=== PATIENT | male | born 1980 | race Caucasian/White ===

== ENCOUNTER 2016-12-19 08:38 | Emergency (ER) | payer SELFPAY ==
[2016-12-19 09:44] LABS: Hemoglobin 13.6 gm/dl (11.8-15.2); Mean Corpuscular HGB Conc 33 % (32-34); Mean Corpuscular Hemoglobin 30 pg (28-32); Mean Corpuscular Volume 90 fl (84-94); Platelet Count 326 K/mm3 (140-440); Red Blood Count 4.55 M/mm3 (3.65-5.03); Red Cell Distribution Width 14.8 % (13.2-15.2); White Blood Count 7.3 K/mm3 (4.5-11.0)
[2016-12-19 09:54] LABS: BUN/Creatinine Ratio 8.66; Calcium 9.4 mg/dL (8.4-10.2); Chloride 98.6 mmol/L (98-107); Potassium 3.8 mmol/L (3.6-5.0)
[2016-12-19 10:01] LABS: Urine Drugs of Abuse Note Disclamer
[2016-12-19 10:35] LABS: Bilirubin,Urine NEG (Negative); Blood,Urine SM (Negative); Ketones,Urine NEG (Negative); Leukocyte Esterase,Urine NEG (Negative); Mucus,Urine FEW /HPF; Nitrite,Urine NEG (Negative); Urobilinogen,Urine < 2.0 mg/dL (<2.0)
--- NOTE | 2016-12-19 11:13 | Emergency Department Report ---
ED General Adult HPI - General Chief complaint: Medical Clearance Stated complaint: INTOXICATED Time Seen by Provider: 12/19/16 11:12 Source: patient, EMS Mode of arrival: Stretcher Limitations: Language Barrier - History of Present Illness Initial comments: Patient was apprehended by police apparently in an intoxicated state. He admits to alcohol excess. He is still intoxicated and not providing much of a history. He denies any recent injury. He tells me he is from [place]. He doesn' t offer any complaint. He does say that he is thirsty and hungry. -: unknown Consistency: constant Improves with: none Worsens with: none Associated Symptoms: denies other symptoms - Related Data Previous Rx's Medication Instructions Recorded Last Taken Type Meclizine [Antivert] 25 mg PO TID PRN #30 tablet 04/09/16 Unknown Rx Promethazine [Phenergan TAB] 25 mg PO Q6HR PRN #60 tab 04/09/16 Unknown Rx amLODIPine [Norvasc] 10 mg PO DAILY #30 tab 04/09/16 Unknown Rx traMADol [Ultram 50 MG tab] 50 mg PO Q6HR PRN #20 tablet 04/09/16 Unknown Rx Allergies Allergy/AdvReac Type Severity Reaction Status Date / Time No Known Allergies Allergy Verified 04/09/16 11:32 ED Review of Systems ROS: Stated complaint: INTOXICATED Other details as noted in HPI Comment: Unobtainable due to pts medical conditions ED Past Medical Hx - Past Medical History Previous Medical History?: Yes Hx Hypertension: Yes Hx Diabetes: Yes - Social History Smoking Status: Never Smoker Substance Use Type: Alcohol - Medications Home Medications: Home Medications Medication Instructions Recorded Confirmed Last Taken Type Meclizine [Antivert] 25 mg PO TID PRN #30 tablet 04/09/16 Unknown Rx Promethazine [Phenergan TAB] 25 mg PO Q6HR PRN #60 tab 04/09/16 Unknown Rx amLODIPine [Norvasc] 10 mg PO DAILY #30 tab 04/09/16 Unknown Rx traMADol [Ultram 50 MG tab] 50 mg PO Q6HR PRN #20 tablet 04/09/16 Unknown Rx ED Physical Exam - General General appearance: in no apparent distress, lethargic, obese - Head Head exam: Present: atraumatic, normocephalic - Eye Eye exam: Present: normal appearance, PERRL, EOMI. Absent: scleral icterus - ENT ENT exam: Present: mucous membranes moist - Neck Neck exam: Present: normal inspection - Respiratory Respiratory exam: Present: normal lung sounds bilaterally. Absent: respiratory distress - Cardiovascular Cardiovascular Exam: Present: regular rate, normal rhythm. Absent: systolic murmur, diastolic murmur, rubs, gallop - GI/Abdominal GI/Abdominal exam: Present: soft, normal bowel sounds. Absent: distended, tenderness, guarding, rebound, rigid - Rectal Rectal exam: Present: deferred - Extremities Exam Extremities exam: Present: normal inspection - Back Exam Back exam: Present: normal inspection - Neurological Exam Neurological exam: Present: CN II-XII intact, other (exam somewhat limited but no focal deficit noted). Absent: motor sensory deficit - Psychiatric Psychiatric exam: Present: normal mood, flat affect - Skin Skin exam: Present: warm, dry, intact, normal color. Absent: rash ED Course Vital Signs 12/19/16 09:00 Temperature 97.8 F Pulse Rate 101 H Respiratory 20 Rate Blood Pressure 168/97 O2 Sat by Pulse 94 Oximetry - Reevaluation(s) Reevaluation #1: On reexamination the patient is coherent. He is receiving a banana bag. He states he can call a friend to pick him up. He is stable and appropriate for discharge. 12/19/16 14:07 ED Medical Decision Making - Lab Data Result diagrams: 12/19/16 09:25 12/19/16 09:25 Laboratory Results - last 24 hr 12/19/16 12/19/16 12/19/16 09:25 09:25 09:25 WBC 7.3 RBC 4.55 Hgb 13.6 Hct 41.0 MCV 90 MCH 30 MCHC 33 RDW 14.8 Plt Count 326 Baso % (Auto) Manager Foreign Sodium 140 Potassium 3.8 Chloride 98.6 Carbon Dioxide 23 Anion Gap 22 BUN 13 Creatinine 1.5 Estimated GFR 53 BUN/Creatinine Ratio 8.66 Glucose 99 Calcium 9.4 Urine Color Urine Turbidity Urine pH Ur Specific Custer Urine Protein Urine Glucose (UA) Urine Ketones Urine Blood Urine Nitrite Urine Bilirubin Urine Urobilinogen Ur Leukocyte Esterase Urine WBC (Auto) Urine RBC (Auto) Urine Mucus Urine Opiates Screen Urine Methadone Screen Ur Barbiturates Screen Ur Phencyclidine Scrn Ur Amphetamines Screen U Benzodiazepines Scrn Urine Cocaine Screen U Marijuana (THC) Screen Drugs of Abuse Note Plasma/Serum Alcohol 0.30 H 12/19/16 12/19/16 09:57 09:57 WBC RBC Hgb Hct MCV MCH MCHC RDW Plt Count Baso % (Auto) Sodium Potassium Chloride Carbon Dioxide Anion Gap BUN Creatinine Estimated GFR BUN/Creatinine Ratio Glucose Calcium Urine Color Colorless Urine Turbidity Clear Urine pH 6.0 Ur Specific Custer 1.003 Urine Protein 100 mg/dl Urine Glucose (UA) Neg Urine Ketones Neg Urine Blood Sm Urine Nitrite Neg Urine Bilirubin Neg Urine Urobilinogen < 2.0 Ur Leukocyte Esterase Neg Urine WBC (Auto) 0.0 Urine RBC (Auto) 0.0 Urine Mucus Few Urine Opiates Screen Presumptive negative Urine Methadone Screen Presumptive negative Ur Barbiturates Screen Presumptive negative Ur Phencyclidine Scrn Presumptive negative Ur Amphetamines Screen Presumptive negative U Benzodiazepines Scrn Presumptive negative Urine Cocaine Screen Presumptive negative U Marijuana (THC) Screen Presumptive negative Drugs of Abuse Note Disclamer Plasma/Serum Alcohol Critical care attestation.: If time is entered above; I have spent that time in minutes in the direct care of this critically ill patient, excluding procedure time. ED Disposition Clinical Impression: Alcohol intoxication Qualifiers: Complication of substance-induced condition: with unspecified complication Qualified Code(s): F10.129 - Alcohol abuse with intoxication, unspecified Disposition: DISCHARGED TO HOME OR SELFCARE Is pt being admited?: No Does the pt Need Aspirin: No Condition: Stable Instructions: Abuse of Alcohol (ED) Additional Instructions: Return as need. Referrals: PRIMARY CARE [Primary Care Provider] - 3-5 Days [facility] [Provider Group] - 3-5 Days Time of Disposition: 14:08
[2016-12-19] MEDS ORDERED: VITAMIN B-1 100 MG, FOLVITE 1 MG, INFUVITE 10 ML in NACL 0.9% 1000 ML 1,000 ML IV ONE (11:38)
[2016-12-19 12:50] LABS: Anisocytosis 1+; Basophils % (Manual) 0 % (0.0-1.8); Blastocytes % (Manual) 0 %; Diff Status Complete; Platelet Estimate Consistent w Auto
[2016-12-19 14:23] VITALS: BP 100/61
== END 2016-12-19 15:41 | disposition home or self-care (01) ==
LOC: ED 08:38
DX: F10.129 Alcohol abuse with intoxication, unspecified (principal); I10 Essential (primary) hypertension; E11.9 Type 2 diabetes mellitus without complications
CPT/HCPCS: 36415; 80048; 80307; 81001; 85007; 85025; 96365; 96366; 99284; G0480; J3411; J7030; 80320

== ENCOUNTER 2022-02-03 14:31 | Emergency (ER) | payer SELFPAY ==
[2022-02-03] MEDS ORDERED: ONDANSETRON 4 MG ODT TAB PO ONE (15:53)
[2022-02-03] MEDS ORDERED: cloNIDine 0.2 MG TAB PO ONE (15:53)
[2022-02-03] MEDS ORDERED: HYDROcodone/ACETAMINOPHEN 5-325 MG TAB PO ONE (15:53)
--- NOTE | 2022-02-03 15:58 | Emergency Department Report ---
HPI - General Chief Complaint: High BP Time Seen by Provider: 02/03/22 15:45 - [facility] HPI: Room 5 The patient is a 41-year-old male present with a chief complaint of headache and dizziness with elevated blood pressure. Patient was sent from the clinic for uncontrolled diabetes and hypertension. Patient states since yesterday's had a headache and dizziness. Patient states he had episodes of nausea vomiting this morning. Patient found to be hypertensive. Patient currently gives his headache a score of 8/10 ED Past Medical Hx - Past Medical History Hx Hypertension: Yes Hx Diabetes: Yes - Surgical History Past Surgical History?: No - Family History Family history: no significant - Social History Smoking Status: Never Smoker Substance Use Type: None (Denies illicit drug use), Alcohol (Occasional) - Medications Home Medications: Home Medications Medication Instructions Recorded Confirmed Last Taken Type Meclizine [Antivert] 25 mg PO TID PRN #30 tablet 04/09/16 Unknown Rx Promethazine [Phenergan TAB] 25 mg PO Q6HR PRN #60 tab 04/09/16 Unknown Rx amLODIPine [Norvasc] 10 mg PO DAILY #30 tab 04/09/16 Unknown Rx traMADoL [Ultram 50 MG tab] 50 mg PO Q6HR PRN #20 tablet 04/09/16 Unknown Rx ED Review of Systems ROS: Stated complaint: DIABETES,HYPERTENSION Other details as noted in HPI Constitutional: no symptoms reported Eyes: denies: eye pain ENT: denies: throat pain Respiratory: no symptoms reported Cardiovascular: denies: chest pain Endocrine: no symptoms reported Gastrointestinal: nausea, vomiting Genitourinary: denies: dysuria Musculoskeletal: denies: back pain Neurological: headache, vertigo Physical Exam - Physical Exam Vital Signs: Vital Signs 02/03/22 15:35 Temperature 98.1 F Pulse Rate 74 Respiratory 18 Rate Blood Pressure 180/128 O2 Sat by Pulse 95 Oximetry Physical Exam: GENERAL: The patient is well-developed well-nourished male lying on stretcher not appearing to be in acute distress. [] HEENT: Normocephalic. Atraumatic. Extraocular motions are intact. Patient has moist mucous membranes. No nystagmus noted NECK: Supple. No meningitic signs are noted. Trachea midline CHEST/LUNGS: Clear to auscultation. There is no respiratory distress noted. HEART/CARDIOVASCULAR: Regular. There is no tachycardia. There is no gallop rub or murmur. ABDOMEN: Abdomen is soft, nontender. Patient has normal bowel sounds. There is no abdominal distention. SKIN: There is no rash. There is no edema. There is no diaphoresis. NEURO: The patient is awake, alert, and oriented. The patient is cooperative. The patient has no focal neurologic deficits. The patient has normal speech. Cranial nerves II through XII grossly intact. GCS 15 MUSCULOSKELETAL: There is no evidence of acute injury. ED Course Vital Signs 02/03/22 15:35 Temperature 98.1 F Pulse Rate 74 Respiratory 18 Rate Blood Pressure 180/128 O2 Sat by Pulse 95 Oximetry - Reevaluation(s) Reevaluation #1: 02/03/22 17:20 Patient eating food comfortably at this time. Patient states his dizziness is improved dramatically. The patient's creatinine was discussed with him. And the need to follow-up with vortex operator was stressed. Patient verbalized understanding ED Medical Decision Making - Lab Data Result diagrams: 02/03/22 16:10 02/03/22 16:10 - Differential Diagnosis Hypertensive urgency, hypertensive emergency, DKA Critical care attestation.: If time is entered above; I have spent that time in minutes in the direct care of this critically ill patient, excluding procedure time. ED Disposition Clinical Impression: Hypertensive urgency, Renal insufficiency Disposition: 01 HOME / SELF CARE / HOMELESS Is pt being admited?: No Does the pt Need Aspirin: No Condition: Stable Instructions: Food Basics for Chronic Kidney Disease, Managing Your Hypertension Additional Instructions: Return to the emergency department should you develop worsening symptoms, inability to tolerate food or liquids, high fever or any other concerns Referrals: VIK GERMAN MD [Staff Physician] - 2-3 Days (Dr. German is a vortex operator. Please follow-up with him for further evaluation of your kidney function) Time of Disposition: 17:22 Print Language: NEPALI
[2022-02-03 16:23] LABS: Basophils # (Auto) 0.2 K/mm3 (0.0-0.1); Basophils % (Auto) 2.6 % (0.0-1.8); Eosinophils # (Auto) 0.5 K/mm3 (0.0-0.4); Eosinophils % (Auto) 6.9 % (0.0-4.3); Hemoglobin 10.9 gm/dl (11.8-15.2); Lymphocytes # (Auto) 1.9 K/mm3 (1.2-5.4); Lymphocytes % (Auto) 27.6 % (13.4-35.0); Mean Corpuscular HGB Conc 32 % (32-34); Mean Corpuscular Volume 88 fl (84-94); Monocytes # (Auto) 0.4 K/mm3 (0.0-0.8); Monocytes % (Auto) 5.9 % (0.0-7.3); Platelet Count 269 K/mm3 (140-440); Red Blood Count 3.88 M/mm3 (3.65-5.03); Red Cell Distribution Width 17.7 % (13.2-15.2)
[2022-02-03 16:37] LABS: Calcium 8.8 mg/dL (8.4-10.2)
[2022-02-03 17:19] VITALS: BP 174/116
== END 2022-02-03 17:59 | disposition home or self-care (01) ==
LOC: ED 14:31
DX: I16.0 Hypertensive urgency (principal); N28.9 Disorder of kidney and ureter, unspecified; E11.9 Type 2 diabetes mellitus without complications
CPT/HCPCS: 36415; 80048; 82805; 82962; 85025; 99283; J3490; Q0162

== ENCOUNTER 2022-07-06 09:20 | Emergency (ER) | payer SELFPAY ==
--- NOTE | 2022-07-06 10:18 | XRay Report ---
CHEST 2 VIEWS INDICATION / CLINICAL INFORMATION: Dyspnea. COMPARISON: None available. FINDINGS: SUPPORT DEVICES: None. HEART / MEDIASTINUM: Heart is moderately enlarged. LUNGS / PLEURA: Moderate interstitial pulmonary edema. No pneumothorax. ADDITIONAL FINDINGS: No significant additional findings. IMPRESSION: 1. Moderate cardiomegaly with interstitial pulmonary edema. Signer Name: Ximena Ying MD Signed: 07/06/2022 10:14 AM Workstation Name: [employer]
[2022-07-06 12:14] LABS: Basophils # (Auto) 0.1 K/mm3 (0.0-0.1); Basophils % (Auto) 1.2 % (0.0-1.8); Eosinophils # (Auto) 0.2 K/mm3 (0.0-0.4); Eosinophils % (Auto) 3.4 % (0.0-4.3); Hematocrit 32.4 % (35.5-45.6); Hemoglobin 10.8 gm/dl (11.8-15.2); Lymphocytes # (Auto) 1.8 K/mm3 (1.2-5.4); Lymphocytes % (Auto) 29.7 % (13.4-35.0); Mean Corpuscular HGB Conc 33 % (32-34); Mean Corpuscular Volume 90 fl (84-94); Monocytes # (Auto) 0.5 K/mm3 (0.0-0.8); Monocytes % (Auto) 7.7 % (0.0-7.3); Platelet Count 248 K/mm3 (140-440); Red Blood Count 3.62 M/mm3 (3.65-5.03); Red Cell Distribution Width 17.3 % (13.2-15.2)
[2022-07-06 12:41] LABS: Albumin 4.9 g/dL (3.9-5); Calcium 9.4 mg/dL (8.4-10.2)
[2022-07-06] MEDS ORDERED: MORPHINE 4 MG/1 ML INJ IV ONE (16:09)
[2022-07-06] MEDS ORDERED: FUROSEMIDE 40 MG/4 ML INJ IV ONE (16:09)
--- NOTE | 2022-07-06 16:14 | Emergency Department Report ---
ED Shortness of Breath HPI - General Chief Complaint: Dyspnea/Respdistress Stated Complaint: STOMACH PAIN Time Seen by Provider: 07/06/22 15:16 Source: patient Mode of arrival: Ambulatory Limitations: Language Barrier - History of Present Illness Initial Comments: Patient is a 41-year-old male history of hypertension who presents to the emergency department with complaint of shortness of breath. Patient is Mongolian- speaking only and a animal scientist is used. History is limited in this nature. Patient reports that he has had 3 days of pain in his stomach. He also had some vomiting and he was noted that his blood pressure was high. Patient states he takes pills for his leg swelling but because he was recently removed from his home or apartment he has not been able to take these pills. He is unable to tell me the name of these pills but I do believe that they are Lasix or furosemide. Patient also states that he has had some diarrhea along with his shortness of breath. He also reported some chest pain earlier today. Last night he states he slept outside and it was raining and his symptoms worsened which prompted him to come to the emergency department. He also states he has had some fever as well. He has received one of the COVID-19 vaccinations. - Related Data Previous Rx's Medication Instructions Recorded Last Taken Type Meclizine [Antivert] 25 mg PO TID PRN #30 tablet 04/09/16 Unknown Rx Promethazine [Phenergan TAB] 25 mg PO Q6HR PRN #60 tab 04/09/16 Unknown Rx amLODIPine [Norvasc] 10 mg PO DAILY #30 tab 04/09/16 Unknown Rx traMADoL [Ultram 50 MG tab] 50 mg PO Q6HR PRN #20 tablet 04/09/16 Unknown Rx Lisinopril [Zestril TAB] 2.5 mg PO QDAY #30 tab 07/06/22 Unknown Rx Metoprolol [Lopressor TAB] 25 mg PO DAILY #30 07/06/22 Unknown Rx Simvastatin 20 mg PO QHS #30 07/06/22 Unknown Rx Allergies Allergy/AdvReac Type Severity Reaction Status Date / Time No Known Allergies Allergy Verified 07/06/22 09:57 ED Review of Systems ROS: Stated complaint: STOMACH PAIN Other details as noted in HPI Constitutional: fever. denies: chills Eyes: denies: eye pain, eye discharge, vision change ENT: denies: ear pain, throat pain Respiratory: shortness of breath, SOB with exertion. denies: cough, wheezing Cardiovascular: chest pain. denies: palpitations Endocrine: no symptoms reported Gastrointestinal: abdominal pain, nausea, vomiting, diarrhea Genitourinary: denies: urgency, dysuria Musculoskeletal: denies: back pain, joint swelling, arthralgia Skin: denies: rash, lesions Neurological: denies: headache, weakness, paresthesias Psychiatric: denies: anxiety, depression Hematological/Lymphatic: denies: easy bleeding, easy bruising ED Past Medical Hx - Past Medical History Hx Hypertension: Yes Hx Diabetes: Yes - Social History Smoking Status: Never Smoker Substance Use Type: None (Denies illicit drug use), Alcohol (Occasional) - Medications Home Medications: Home Medications Medication Instructions Recorded Confirmed Last Taken Type Meclizine [Antivert] 25 mg PO TID PRN #30 tablet 04/09/16 02/03/22 Unknown Rx Promethazine [Phenergan TAB] 25 mg PO Q6HR PRN #60 tab 04/09/16 02/03/22 Unknown Rx amLODIPine [Norvasc] 10 mg PO DAILY #30 tab 04/09/16 02/03/22 Unknown Rx traMADoL [Ultram 50 MG tab] 50 mg PO Q6HR PRN #20 tablet 04/09/16 02/03/22 U nknown Rx Lisinopril [Zestril TAB] 2.5 mg PO QDAY #30 tab 07/06/22 Unknown Rx Metoprolol [Lopressor TAB] 25 mg PO DAILY #30 07/06/22 Unknown Rx Simvastatin 20 mg PO QHS #30 07/06/22 Unknown Rx ED Physical Exam - General Limitations: Language Barrier General appearance: alert, in no apparent distress - Head Head exam: Present: atraumatic, normocephalic - Eye Eye exam: Present: normal appearance - ENT ENT exam: Present: mucous membranes moist - Neck Neck exam: Present: normal inspection - Respiratory Respiratory exam: Present: normal lung sounds bilaterally. Absent: respiratory distress - Cardiovascular Cardiovascular Exam: Present: regular rate, normal rhythm. Absent: systolic murmur, diastolic murmur, rubs, gallop - GI/Abdominal GI/Abdominal exam: Present: soft, tenderness (diffuse but more severe in upper abdomen) - Rectal Rectal exam: Present: deferred - Extremities Exam Extremities exam: Present: normal inspection - Back Exam Back exam: Present: normal inspection - Neurological Exam Neurological exam: Present: alert, oriented X3 - Psychiatric Psychiatric exam: Present: normal affect, normal mood - Skin Skin exam: Present: warm, dry, intact, normal color. Absent: rash ED Course Vital Signs 07/06/22 07/06/22 09:42 19:59 Temperature 98.2 F Pulse Rate 67 69 Respiratory 16 14 Rate Blood Pressure 179/112 162/108 [Right] O2 Sat by Pulse 94 99 Oximetry - Reevaluation(s) Reevaluation #1: 07/06/22 17:24 Patient was evaluated by the hospitalist, Dr. Mccain who recommended patient be discharged home with close outpatient follow-up. He has been provided with prescriptions. ED Medical Decision Making - Lab Data Result diagrams: 07/06/22 11:19 07/06/22 17:59 - Radiology Data Radiology results: report reviewed, image reviewed - Medical Decision Making Patient is a 41-year-old male presenting to the emergency department with complaint of shortness of breath and abdominal pain. Differential includes pneumonia, heart failure exacerbation, ACS, gastritis. Plan for evaluation with x-ray, basic labs, CT scan of abdomen and pelvis. Critical care attestation.: If time is entered above; I have spent that time in minutes in the direct care of this critically ill patient, excluding procedure time. ED Disposition Clinical Impression: Noncompliance with medication regimen, Elevated serum creatinine, Cardiomyopathy Hypertension Qualifiers: Hypertension type: primary hypertension Qualified Code(s): I10 - Essential (primary) hypertension Disposition: 01 HOME / SELF CARE / HOMELESS Is pt being admited?: No Does the pt Need Aspirin: No Condition: Stable Instructions: Hypertension (ED) Prescriptions: Simvastatin 20 mg PO QHS #30 Metoprolol [Lopressor TAB] 25 mg PO DAILY #30 Lisinopril [Zestril TAB] 2.5 mg PO QDAY #30 tab Referrals: REECE TREJO MD [Primary Care Provider] - 7 Days
--- NOTE | 2022-07-06 16:56 | Cat Scan Report ---
CT ABDOMEN AND PELVIS WITHOUT CONTRAST INDICATION / CLINICAL INFORMATION: severe abdominal pain. TECHNIQUE: Axial CT images were obtained through the abdomen and pelvis without IV contrast. All CT scans at this location are performed using CT dose reduction for ALARA by means of automated exposure control. COMPARISON: None available. FINDINGS: LOWER CHEST: Partially visualized small/moderate volume pericardial effusion that measures 1.7 cm in thickness along the right heart border. Bibasilar interstitial thickening and groundglass opacities m ost likely representing mild interstitial edema. Right middle lobe and lingular subsegmental platelik e atelectasis. LIVER: No significant abnormality. GALLBLADDER/BILIARY: No significant abnormality or evidence for biliary obstruction. PANCREAS: No significant abnormality. SPLEEN: No significant abnormality. ADRENALS: No significant abnormality. KIDNEYS/URETERS: No urolithiasis, hydronephrosis, solid renal mass or other significant abnormality. GI: No acute bowel inflammation, obstruction or evidence for ischemia. APPENDIX: No significant abnormality. PERITONEUM: No pneumoperitoneum, free peritoneal fluid or loculated fluid collection. LYMPH NODES: No significant adenopathy. AORTA / ARTERIES: Mild atherosclerotic calcification without acute abnormality. URINARY BLADDER: Mild diffuse urinary bladder wall thickening for which correlation with urinalysis i s recommended to exclude cystitis. REPRODUCTIVE ORGANS: No significant abnormality. SKELETAL SYSTEM: No acute or destructive osseous process. ADDITIONAL FINDINGS: Small fat-containing umbilical hernia with a small amount of internal fat strand ing that is most likely chronic. No bowel involvement. IMPRESSION: 1. No definite acute abdominopelvic process. 2. Mild bibasilar interstitial edema and small/moderate volume pericardial effusion. 3. Mild diffuse urinary bladder wall thickening for which correlation with urinalysis is recommended to exclude cystitis. 4. Small fat-containing umbilical hernia with a small amount of internal fat stranding that is most l ikely chronic without bowel involvement. Signer Name: Eyad Rashid MD Signed: 07/06/2022 4:52 PM Workstation Name: [employer]
--- NOTE | 2022-07-06 18:39 | Consultation ---
History of Present Illness - Reason for Consult Consult date: 07/06/22 HTN Requesting physician: ADAMA PHAN - History of Present Illness 41-year-old male presents to ED for evaluation. Patient reports "I ran out of my medication". Patient states that he has been noncompliant with his home medication for the past several weeks due to inability to afford medication. Patient transported [facility] via private vehicle for further care and evaluation of the aforementioned symptoms. The patient was seen and evaluated in the emergency department. All lab and imaging studies reviewed. Patient found to have accelerated hypertension due to medication noncompliance as well as elevated creatinine level suspected secondary to early cardiorenal syndrome due to medication noncompliance. Patient initiated on CHF protocol. Patient medically optimized. Patient denies shortness of breath. Patient pulse oximetry is 97% on room air. Patient does not meet admission criteria and subsequent discharged home and instructed to resume prehospital medication to follow-up with primary care physician within 3 to 5 days with blood pressure log conducted 3 times daily. Patient also instructed to follow-up with nephrology within 1 week. Past History Past Medical History: hypertension Past Surgical History: No surgical history, Other (Reviewed) Social history: single. denies: smoking, alcohol abuse, prescription drug abuse Family history: hypertension Medications and Allergies Allergies Allergy/AdvReac Type Severity Reaction Status Date / Time No Known Allergies Allergy Verified 07/06/22 09:57 Home Medications Medication Instructions Recorded Confirmed Last Taken Type Meclizine [Antivert] 25 mg PO TID PRN #30 tablet 04/09/16 02/03/22 Unknown Rx Promethazine [Phenergan TAB] 25 mg PO Q6HR PRN #60 tab 04/09/16 02/03/22 Unknown Rx amLODIPine [Norvasc] 10 mg PO DAILY #30 tab 04/09/16 02/03/22 Unknown Rx traMADoL [Ultram 50 MG tab] 50 mg PO Q6HR PRN #20 tablet 04/09/16 02/03/22 Unknown Rx Lisinopril [Zestril TAB] 2.5 mg PO QDAY #30 tab 07/06/22 Unknown Rx Metoprolol [Lopressor TAB] 25 mg PO DAILY #30 07/06/22 Unknown Rx Simvastatin 20 mg PO QHS #30 07/06/22 Unknown Rx Review of Systems Constitutional: no weight loss, no weight gain, no fever, no chills Ears, nose, mouth and throat: no ear pain, no tinnitis, no nasal congestion Cardiovascular: no chest pain, no orthopnea, no rapid/irregular heart beat, no syncope Respiratory: no cough, no excessive sputum, no hemoptysis, no shortness of breath, no dyspnea on exertion Gastrointestinal: no abdominal pain, no nausea Genitourinary Male: no hematuria, no flank pain, no discharge, no urinary frequency, no urinary hesitancy Rectal: no pain, no incontinence, no bleeding Musculoskeletal: no neck stiffness, no neck pain, no shooting leg pain, no leg numbness/tingling Integumentary: no rash, no pruritis, no redness, no sores, no wounds, no jaundic e Neurological: no head injury, no paralysis, no parathesias, no numbness Psychiatric: no anxiety, no change in sleep habits, no insomnia, no hypersomnia, no change in libido, no suicidal ideation, no disorientation Endocrine: no cold intolerance, no excessive thirst, no polydipsia, no nocturia, no flushing Hematologic/Lymphatic: no easy bruising Allergic/Immunologic: no allergic rhinitis Exam - Constitutional Vitals: Temp Pulse Resp BP Pulse Ox 98.2 F 67 16 179/112 94 07/06/22 09:42 07/06/22 09:42 07/06/22 09:42 07/06/22 09:42 07/06/22 09:42 General appearance: Present: no acute distress, obese - EENT Eyes: Present: PERRL ENT: hearing intact, clear oral mucosa - Neck Neck: Present: supple, normal ROM - Respiratory Respiratory effort: normal Respiratory: bilateral: CTA - Cardiovascular Heart Sounds: Present: S1 & S2. Absent: rub, click - Extremities Extremities: pulses symmetrical, No edema Peripheral Pulses: within normal limits - Abdominal General gastrointestinal: Present: soft, non-tender, non-distended, normal bowel sounds Male genitourinary: Present: normal - Integumentary Integumentary: Present: clear, warm, dry - Musculoskeletal Musculoskeletal: gait normal, strength equal bilaterally - Psychiatric Psychiatric: appropriate mood/affect, intact judgment & insight - Neurologic Neurologic: CNII-XII intact, moves all extremities Results - Labs CBC & Chem 7: 07/06/22 11:19 07/06/22 17:59 Labs: Abnormal lab results 07/06/22 07/06/22 07/06/22 Range/Units 11:18 11:19 12:34 RBC 3.62 L (3.65-5.03) M/mm3 Hgb 10.8 L (11.8-15.2) gm/dl Hct 32.4 L (35.5-45.6) % RDW 17.3 H (13.2-15.2) % [place] % (Auto) 7.7 H (0.0-7.3) % BUN 25 H (9-20) mg/dL Creatinine 2.9 H (0.8-1.3) mg/dL AST 53 H (5-40) units/L NT-Pro-B Natriuret Pep 845.6 H (0-450) pg/mL Lipase 67 H (13-60) units/L Assessment and Plan - Patient Problems (1) Hypertension Current Visit: Yes Status: Acute Qualifiers: Hypertension type: primary hypertension Qualified Code(s): I10 - Essential (primary) hypertension Plan to address problem: Resume prehospital antihypertensive therapy, follow-up with primary care physic silvia as outpatient, blood pressure log (2) Noncompliance with medication regimen Current Visit: Yes Status: Acute Plan to address problem: Patient counseled. 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 Outpatient echocardiogram recommended. (4) Elevated serum creatinine Current Visit: Yes Status: Acute Plan to address problem: Outpatient follow-up with primary care physician with repeat BMP within 1 week to monitor serum creatinine.
[2022-07-06 19:59] VITALS: BP 162/108
[2022-07-06 20:01] LABS: Color,Urine Colorless (Yellow)
[2022-07-06 20:04] LABS: Mucus,Urine FEW /HPF
--- NOTE | 2022-07-07 18:08 | Electrocardiograph Report ---
[facility] Test Date: 2022-07-06 Test Time: 16:16:48 Pat Name: JENNIFER BRITO Department: Room: Gender: M Hand Pleater: UTE : 1980 Requested By: PITER RESENDIZ Order Number: [id number] Reading MD: Sofia Chatman Measurements Intervals [place] Rate: 67 P: 38 CA: 211 QRS: -4 QRSD: 128 T: 121 QT: 434 QTc: 460 Interpretive Statements Sinus rhythm Prolonged CA interval Probable left atrial enlargement Nonspecific intraventricular conduction delay No previous ECG available for comparison Electronically Signed On 07-07-2022 18:08:36 EDT by Sofia Chatman
== END 2022-07-06 20:00 | disposition home or self-care (01) ==
LOC: ED 09:20
DX: I10 Essential (primary) hypertension (principal); I42.9 Cardiomyopathy, unspecified; R79.89 Other specified abnormal findings of blood chemistry; Z91.14 Patient's other noncompliance with medication regimen; E11.9 Type 2 diabetes mellitus without complications; Z72.89 Other problems related to lifestyle; Z79.899 Other long term (current) drug therapy
CPT/HCPCS: 36415; 71046; 74176; 80051; 80053; 81001; 82962; 83690; 83880; 85025; 93005; 96374; 96375; 99285; J1940; J2270